=== PATIENT | male | born 1970 | race Caucasian/White ===

== ENCOUNTER 2021-03-07 09:32 | Day surgery (SDC) | payer OTHER ==
[2021-03-07] MEDS ORDERED: Lidocaine 2% 5 ML SDV ONE ×2 (09:33→12:00)
[2021-03-07 10:09] LABS: HEMOGLOBIN A1C 10.8 % (4.3-5.7)
[2021-03-07] MEDS ORDERED: Sodium Chloride 0.9% 10 ML Syringe FLUSH PRN (10:15)
[2021-03-07] MEDS ORDERED: Sodium Chloride 0.9% 1,000 ML IV SCH (10:15)
--- NOTE | 2021-03-07 11:55 | PCM.PN ---
- General Info Date of Service: 03/07/21 - Review of Systems Systems Review Comment:: 51-year-old male referred for EGD and colonoscopy. This patient has been having some right flank pain and a CT scan was performed showing possible wall thickening in the ascending colon. He denies any recent change in bowel pattern and also denies any signs of rectal bleeding. Patient also denies any family history of colon cancer. He has never had a prior colonoscopy. His recent history and physical is reviewed and no significant changes are noted. I have discussed the proposed EGD and colonoscopy with the patient. I reviewed indications options and risks such as but not limited to bleeding and GI injury. He agrees to proceed. - Patient Data Vitals - Most Recent: Last Vital Signs Temp 98.3 F 03/07/21 10:25 Pulse 99 03/07/21 10:25 Resp 16 03/07/21 10:25 BP 149/99 H 03/07/21 10:25 Pulse Ox 97 03/07/21 10:25 Weight - Most Recent: 119.295 kg Lab Results Last 24 Hours: Laboratory Results - last 24 hr 03/07/21 03/07/21 03/07/21 Range/Units 09:45 09:45 11:08 POC BUN 12 (8-26) mg/dL POC Creatinine 1.10 (0.51-1.19) mg/dL POC Glucose 263 H (70-140) mg/dL Hemoglobin A1c 10.8 H (4.3-5.7) % Creatine Kinase Cancelled Med Orders - Current: Current Medications Sodium Chloride (Normal Saline) 1,000 mls @ 50 mls/hr IV ASDIRECTED [facility] Sodium Chloride (Sodium Chloride 0.9% 10 Ml Syringe) 10 ml FLUSH Q8HR PRN PRN Reason: keep vein open - Patient Data Lab Results Last 24 hrs: Laboratory Results - last 24 hr 03/07/21 03/07/21 03/07/21 Range/Units 09:45 09:45 11:08 POC BUN 12 (8-26) mg/dL POC Creatinine 1.10 (0.51-1.19) mg/dL POC Glucose 263 H (70-140) mg/dL Hemoglobin A1c 10.8 H (4.3-5.7) % Creatine Kinase Cancelled Sepsis Event Note - Focused Exam Vital Signs: Vital Signs Temp Pulse Resp BP Pulse Ox 03/07/21 10:25 98.3 F 99 16 149/99 H 97 - Problem List Review Problem List Initiated/Reviewed/Updated: Yes - My Orders Last 24 Hours: My Active Orders 03/06/21 16:01 Resuscitation Status Routine 03/07/21 Breakfast Nothing Per Oral Diet [DIET] 03/07/21 10:15 Blood Glucose Check, Bedside [RC] UPON Peripheral IV Care [RC] . DIRECTED Sodium Chloride 0.9% [Normal Saline] 1,000 ml IV ASDIRECTED Sodium Chloride 0.9% [Saline Flush] 10 ml FLUSH Q8HR PRN Peripheral IV Insertion Adult [OM.PC] Routine 03/07/21 11:00 Patient to Empty Bladder [RC] ASDIRECTED 03/07/21 11:15 Verify Patient Consent Obtain [RC] ASDIRECTED - Assessment Assessment:: Right flank pain Abnormal appearing colon on CT scan - Plan Plan:: EGD and colonoscopy
[2021-03-07] MEDS ORDERED: Midazolam 1 MG/ML 2 ML SDV ONE (11:59)
[2021-03-07] MEDS ORDERED: Propofol 200 MG/20 ML SDV ONE (11:59)
[2021-03-07] MEDS ORDERED: Glycopyrrolate 0.2 MG/ML SDV ONE (11:59)
--- NOTE | 2021-03-07 13:00 | PCM.OPNOTE ---
- General Post-Op/Procedure Note Date of Surgery/Procedure: 03/07/21 Operative Procedure(s): EGD with Biopsy. Colonoscopy with Biopsy and Polypectomy Findings: Moderate duodenitis in duodenal bulb Large Mass (suspect Malignant) in Ascending Colon near hepatic flexure Small polyps in rectum and sigmoid colon Moderate diverticulosis in left colon Pre Op Diagnosis: Abnormal CT Scan colon. Right sided flank pain Post-Op Diagnosis: Duodenitis. Ascending Colon Mass. Colon polyps. Diverticulosis [place]est[place] [facility] [place]geon: Rony Salazar Pathology: Biopsies of Duodenum and Colon Mass Colon Polyps EBL in mLs: 4 Complications: None Condition: Good
--- NOTE | 2021-03-07 18:12 | OR ---
DATE OF SURGERY: 03/07/2021 SURGEON: Rony Salazar MD PREOPERATIVE DIAGNOSIS: Right flank pain and abnormal colon on CT scan. POSTOPERATIVE DIAGNOSIS: Duodenitis, ascending colon mass, colon polyps, left colon diverticulosis. OPERATION PERFORMED: Esophagogastroduodenoscopy with biopsy and colonoscopy with biopsy and polypectomy. INDICATIONS FOR SURGERY: This 51-year-old male was referred by Dr. Roberta Rockwell for EGD and colonoscopy. He had been having some right flank pain and underwent a CT scan of the abdomen which showed an abnormality in his ascending colon. The patient has never had a prior colonoscopy and comes for EGD and colon exam. FINDINGS: On upper endoscopy, the patient does have some mild to moderate inflammation in the region of the duodenal bulb with mild hyperemia of the duodenal mucosa and some thickening of the folds. No ulcers are seen. The duodenum otherwise appears normal. The patient's stomach and esophagus also appear normal. In the patient's colon, there was a large mass in the ascending colon near the hepatic flexure. This is a hard malignant-appearing mass. It encompasses approximately 50% of the circumference of the colon. There is also 2 small polyps in the distal portion of the patient's colon, one in the rectum 10 cm from the anal verge and the other in the sigmoid colon 15 cm from the anal verge. These are each of 6 mm in diameter and semi-pedunculated in shape. The patient also has a mild to moderate amount of diverticulosis in the descending colon. DESCRIPTION OF PROCEDURE: The patient was taken to the operating room. He was given intravenous sedation and with him in the left lateral decubitus position, the Olympus gastroscope was advanced through the mouth guard into the oral cavity. Under direct visualization, the scope was then advanced through the oropharynx into the esophagus and then down through the esophagus, stomach, and into the duodenum where examination to the 3rd portion is performed. Because of the patient's history as well as the appearance of the duodenal mucosa, random biopsies of the area of inflammation are taken in the region of the duodenal bulb. After examining the duodenum, the scope was withdrawn back into the stomach where full examination including retroflexed examination of the fundus was performed. Random biopsies of the antrum were taken to rule out H pylori. The GE junction and esophagus are re-examined as the scope was withdrawn. Attention was turned to colonoscopy. Digital rectal exam was performed showing no rectal masses. The Olympus colonoscope was inserted into the rectum and retroflexed examination of the rectal canal is performed. In the rectum and distal sigmoid colon, 2 above-described polyps are identified. These are each removed with a cautery snare and retrieved into a polyp trap. The scope was then advanced carefully under direct visualization through the entire length of the colon until the cecum is reached. During the colonoscopy, the large mass is noted in the ascending colon region near the hepatic flexure. The colonoscope was able to pass by this mass, although the mass did appear to be encompassing about 50% of the circumference of the colon. Biopsies of the mass are taken. The scope was then slowly withdrawn after examining the cecum until the entire colon and rectum had been fully examined. The scope was removed and the patient was taken from the operating room in satisfactory condition. TOTAL BLOOD LOSS: 4 mL. COMPLICATIONS: None. PROGNOSIS: Good. /[id number]/MODL
== END 2021-03-07 14:13 | disposition home or self-care (01) ==
LOC: KA.SDS 09:32
PROVIDERS: ATTEND Surgery
DX: C18.2 Malignant neoplasm of ascending colon (principal); K62.1 Rectal polyp; K63.5 Polyp of colon; K29.80 Duodenitis without bleeding; K57.30 Diverticulosis of large intestine without perforation or abscess without bleeding; K31.89 Other diseases of stomach and duodenum; F17.210 Nicotine dependence, cigarettes, uncomplicated; Z79.899 Other long term (current) drug therapy
CPT/HCPCS: 00813; 36415; 82947; 83036; J2250; J2704; J3490; J7030